=== PATIENT | male | born 1955 | race Two or more races ===

== ENCOUNTER → 2024-01-06 | Outpatient (CLI) | payer OTHER ==
[2024-01-06 11:17] LABS: Basophils # (auto) 0 10 ^3/uL (0-0.2); Basophils % (auto) 0.8 % (0.0-2.0); Eosinophils # (auto) 0.1 10 ^3/uL (0-0.8); Eosinophils % (auto) 2.9 % (0.0-7.0); Hematocrit 45.6 % (41.0-53.0); Lymphocytes # (auto) 1.2 10 ^3/uL (0.4-5.4); Mean Corpuscular Hgb Conc. 32.9 g/dL (32.0-36.0); Mean Corpuscular Volume 91.3 fL (80.0-100.0); Monocytes # (auto) 0.5 10 ^3/uL (0-1.3); Monocytes % (auto) 9.6 % (0.0-12.0); Neutrophils # (auto) 2.9 10 ^3/uL (1.6-8.6); Neutrophils % (auto) 60.7 % (37.0-80.0); Red Blood Cells 4.99 10^6/uL (4.5-5.90); Red Cell Distribution Width 14.1 % (11.8-14.3); White Blood Cell 4.7 10^3/uL (4.4-10.8)
[2024-01-06 11:40] LABS: Urine Blood Negative /uL (Negative); Urine Clarity Clear (Clear); Urine Color Yellow (Yellow); Urine Protein, UAD Negative (Negative); Urine Specific Gravity 1.021 (1.001-1.035); Urine Urobilinogen Normal (Negative)
[2024-01-06 11:58] LABS: Alanine Aminotransferase 18 U/L (7-40); Alkaline Phosphatase 117 U/L (46-116); Anion Gap 3 (5-15); Calcium 9.6 mg/dL (8.5-10.1); Carbon Dioxide 32 mmol/L (20-30); Chloride 106 mmol/L (98-107); Glucose 134 mg/dL (74-106); LDL Cholesterol 148 mg/dL (< 100); Potassium 4.3 mmol/L (3.5-5.1); Sodium 141 mmol/L (136-145); Triglycerides 131 mg/dL (< 150)
[2024-01-06 11:59] LABS: % Iron Saturation 34.9 % (20-55); Albumin 4.4 g/dL (3.2-4.8); Aspartate Aminotransferase 16 U/L (13-40); BUN/Creatinine Ratio 11.8 (10.0-20.0); Bilirubin, Total 0.8 mg/dL (0.2-1.0); Blood Urea Nitrogen 13 mg/dL (9-23); Cholesterol 201 mg/dL (< 200); HDL Cholesterol 40 mg/dL (40-59); Prostate Specific Antigen 0.59 ng/mL (0.0-4.0); Total Protein 7.3 g/dL (5.7-8.2)
[2024-01-06 12:02] LABS: Free T3 3.7 pg/mL (2.3-4.2)
[2024-01-06 12:03] LABS: T3 Total 1.17 ng/mL (0.60-1.81)
[2024-01-06 12:04] LABS: Free T4 (Free Thyroxine) 1.01 ng/dL (0.89-1.76)
[2024-01-06 12:24] LABS: Amphetamine Screen, Urine Neg (NEGATIVE)
[2024-01-06 12:25] LABS: Barbiturate Scree,Urine Neg (NEGATIVE); Benzodiazephine Screen, Urine Neg (NEGATIVE); Cannabinoid Screen, Urine Neg (NEGATIVE); Cocaine Screen, Urine Neg (NEGATIVE); Opiate Scree,Urine Pos (NEGATIVE); Phencyclidine Screen, Urine Neg (NEGATIVE)
== END | disposition home or self-care (01) ==
LOC: LAB 10:36
PROVIDERS: ATTEND Family Medicine
DX: J30.1 Allergic rhinitis due to pollen (principal); Z00.00 Encounter for general adult medical examination without abnormal findings
CPT/HCPCS: 36415; 80053; 80061; 80307; 81003; 83036; 83540; 83550; 84153; 84439; 84443; 84480; 84481; 85025

== ENCOUNTER → 2024-03-27 | Outpatient (CLI) | payer OTHER ==
[2024-03-27 11:22] LABS: Amphetamine Screen, Urine Neg (NEGATIVE); Barbiturate Scree,Urine Neg (NEGATIVE)
[2024-03-27 11:23] LABS: Benzodiazephine Screen, Urine Neg (NEGATIVE); Cocaine Screen, Urine Neg (NEGATIVE); Opiate Scree,Urine Pos (NEGATIVE)
[2024-03-27 11:24] LABS: Cannabinoid Screen, Urine Pos (NEGATIVE); Phencyclidine Screen, Urine Neg (NEGATIVE)
[2024-03-27 11:32] LABS: Alanine Aminotransferase 13 U/L (7-40); Albumin 4.4 g/dL (3.2-4.8); Alkaline Phosphatase 108 U/L (46-116); Anion Gap 4 (5-15); Aspartate Aminotransferase 10 U/L (13-40); BUN/Creatinine Ratio 12.8 (10.0-20.0); Blood Urea Nitrogen 12 mg/dL (9-23); Calcium 9.6 mg/dL (8.7-10.4); Carbon Dioxide 31 mmol/L (20-30); Chloride 105 mmol/L (98-107); Glucose 118 mg/dL (74-106); Potassium 4.3 mmol/L (3.5-5.1); Sodium 140 mmol/L (136-145)
[2024-03-27 11:33] LABS: Bilirubin, Total 0.6 mg/dL (0.2-1.0)
== END | disposition home or self-care (01) ==
LOC: LAB 10:12
PROVIDERS: ATTEND Family Medicine
DX: Z01.812 Encounter for preprocedural laboratory examination (principal)
CPT/HCPCS: 36415; 80053; 80307

== ENCOUNTER → 2024-04-10 | Outpatient (CLI) | payer OTHER | END | disposition home or self-care (01) | LOC: XYW 12:58 | PROVIDERS: ATTEND Student in an Organized Health Care Education/Training Program | DX: Z01.810 Encounter for preprocedural cardiovascular examination (principal); I51.89 Other ill-defined heart diseases | CPT/HCPCS: 93306 ==

== ENCOUNTER → 2024-04-26 | Outpatient (CLI) | payer OTHER | END | disposition home or self-care (01) | LOC: XYW 10:54 | PROVIDERS: ATTEND Student in an Organized Health Care Education/Training Program | DX: Z01.810 Encounter for preprocedural cardiovascular examination (principal); R00.0 Tachycardia, unspecified | CPT/HCPCS: 78452; 93017; A9500 ==

== ENCOUNTER → 2024-05-01 | Outpatient (CLI) | payer OTHER ==
[2024-05-01 13:06] LABS: Amphetamine Screen, Urine Neg (NEGATIVE); Barbiturate Scree,Urine Neg (NEGATIVE)
[2024-05-01 13:07] LABS: Benzodiazephine Screen, Urine Neg (NEGATIVE); Cannabinoid Screen, Urine Neg (NEGATIVE); Cocaine Screen, Urine Neg (NEGATIVE); Opiate Scree,Urine Pos (NEGATIVE); Phencyclidine Screen, Urine Neg (NEGATIVE)
== END | disposition home or self-care (01) ==
LOC: LAB 09:54
PROVIDERS: ATTEND Family Medicine
DX: R82.5 Elevated urine levels of drugs, medicaments and biological substances (principal)
CPT/HCPCS: 80307

== ENCOUNTER 2024-05-17 06:27 | Inpatient (IN) | payer OTHER ==
[2024-05-15 08:18] LABS: Basophils # (auto) 0 10 ^3/uL (0-0.2); Basophils % (auto) 0.8 % (0.0-2.0); Eosinophils # (auto) 0.2 10 ^3/uL (0-0.8); Hematocrit 44.9 % (41.0-53.0); Hemoglobin 15.5 g/dL (13.5-17.5); Lymphocytes # (auto) 1.7 10 ^3/uL (0.4-5.4); Lymphocytes % (auto) 29.6 % (10.0-50.0); Mean Corpuscular Hemoglobin 31.5 pg (28.0-32.0); Mean Corpuscular Hgb Conc. 34.5 g/dL (32.0-36.0); Mean Corpuscular Volume 91.3 fL (80.0-100.0); Monocytes # (auto) 0.5 10 ^3/uL (0-1.3); Monocytes % (auto) 8.8 % (0.0-12.0); Neutrophils # (auto) 3.3 10 ^3/uL (1.6-8.6); Neutrophils % (auto) 57.8 % (37.0-80.0); Platelet Count (auto) 238 10^3/uL (140-450); Red Blood Cells 4.92 10^6/uL (4.5-5.90); Red Cell Distribution Width 13.9 % (11.8-14.3); White Blood Cell 5.7 10^3/uL (4.4-10.8)
[2024-05-15 08:24] LABS: Urine Bacteria None Seen /hpf (None Seen)
[2024-05-15 08:39] LABS: Urine Blood Negative /uL (Negative); Urine Clarity Clear (Clear); Urine Color Yellow (Yellow); Urine Mucus FEW (None Seen); Urine Protein, UAD Negative (Negative); Urine Specific Gravity 1.029 (1.001-1.035); Urine Urobilinogen Normal (Negative); Urine WBC <1 /hpf (0 - 3); Urine pH 5.5 (5.0-9.0)
[2024-05-15 08:50] LABS: INR 1.08 (0.9-1.15); Partial Thromboplastin Time 28.8 SEC (24.5-34.5); Prothrombin Time 11.4 sec (9.3-11.8)
[2024-05-15 09:20] LABS: Alanine Aminotransferase 13 U/L (7-40); Albumin 4.5 g/dL (3.2-4.8); Alkaline Phosphatase 92 U/L (46-116); Anion Gap 8 (5-15); Aspartate Aminotransferase 10 U/L (13-40); BUN/Creatinine Ratio 17.2 (10.0-20.0); Bilirubin, Total 0.6 mg/dL (0.2-1.0); Blood Urea Nitrogen 17 mg/dL (9-23); Calcium 9.4 mg/dL (8.7-10.4); Carbon Dioxide 24 mmol/L (20-31); Chloride 109 mmol/L (98-107); Glucose 168 mg/dL (74-106); Potassium 4.2 mmol/L (3.5-5.1); Sodium 141 mmol/L (136-145)
[~2024-05-17] VITALS: Ht 195.6 cm; Wt 96.3 kg
[~2024-05-17 06:27] MED LIST: HYDR-4798 PO
[2024-05-17] MEDS: TRANEXAMIC ACID 20 ML ONE (06:36)
[2024-05-17] MEDS: LIDOCAINE 2% JELLY 11ml (GLYDO) ONE (06:37)
[2024-05-17] MEDS: ceFAZolin 2 GM/D5W100ml 100 ML IV ONE (06:43)
[2024-05-17] MEDS: levoFLOXacin 750MG 150 ML IV ONE (06:45)
[2024-05-17] MEDS ORDERED: ROCURONIUM 10MG/ML 10ML VIAL IV ONE (07:28)
[2024-05-17] MEDS ORDERED: MIDAZOLAM HCL 2MG/2ML 2ml VIAL (1mg/ml) ONE (07:28)
[2024-05-17] MEDS ORDERED: GLYCOPYRROLATE 0.2 MG/ML 1ML VIAL ONE (07:28)
[2024-05-17] MEDS ORDERED: ONDANSETRON HCL 4 MG/2 ML VIAL ONE (07:28)
[2024-05-17] MEDS ORDERED: HYDROCORTISONE SOD SUCC 100 MG/2ML INJ VIAL ONE (07:28)
[2024-05-17] MEDS ORDERED: KETOROLAC TROMETH 30 MG/ML 1ML VIAL ONE (07:28)
[2024-05-17] MEDS ORDERED: KETAMINE 50mg/ML 1ml syringe ONE (07:28)
[2024-05-17] MEDS ORDERED: fentaNYL CITRATE 100 MCG/2 ML VL ONE (07:28)
[2024-05-17] MEDS ORDERED: fentaNYL CITRATE 5 ML ONE (07:29)
[2024-05-17] MEDS: PROPOFOL 200 ML IV ONE (07:30)
[2024-05-17] MEDS: LIDOCAINE W/ EPINEPHRINE 1% 20ML VIAL ONE (08:31)
[2024-05-17] MEDS ORDERED: MEPERIDINE HCL (50 MG/ML) 1 ML VIAL ONE (09:02)
[2024-05-17] MEDS ORDERED: SUGAMMADEX 200mg/2ml Vial (100MG/ML) IV ONE (09:10)
[2024-05-17] MEDS: D5W/SOD CHLO 0.9% 1,000 ML IV SCH ×2 (09:45→15:15)
[2024-05-17] MEDS ORDERED: NITROGLYCERIN 0.4 MG SL TAB SL PRN (09:45)
[2024-05-17] MEDS ORDERED: ACETAMINOPHEN 325 MG TAB PO PRN ×2 (09:45→15:15)
[2024-05-17] MEDS ORDERED: HYDROcodone-ACET 10/325MG TAB PO PRN (09:45)
[2024-05-17] MEDS ORDERED: MORPHINE SULFATE INJ 2 MG/ml SYRG IV PRN ×3 (09:45→15:15)
[2024-05-17] MEDS ORDERED: ONDANSETRON HCL 4 MG/2 ML VIAL IV PRN ×2 (09:45→15:15)
[2024-05-17 10:32] VITALS: PULSE 77; RESP 14; O2SAT 99
[2024-05-17] MEDS: ACCU-CHEK COMFORT CURVE STRIP VI ONE (10:45)
[2024-05-17] MEDS ORDERED: HYDROmorphone HCL 2 MG/ML VL/or syr IV PRN ×2 (10:45)
[2024-05-17] MEDS: ONDANSETRON HCL 4 MG/2 ML VIAL IV ONE (10:45)
[2024-05-17 12:01] VITALS: BP 145/88; PULSE 64; RESP 19; TEMP 97.6; O2SAT 97
[2024-05-17] MEDS: DOCUSATE SOD 100 MG CAP PO SCH ×2 (12:45→21:24)
[2024-05-17 13:00] VITALS: BP 118/85; PULSE 68; RESP 20; TEMP 97.8; O2SAT 93
[2024-05-17] MEDS: CARISOPRODOL 350 MG TAB PO SCH (14:00)
[2024-05-17] MEDS: OXYCODONE W/ ACETAMINOPHEN 5/325MG TABLET PO PRN (14:15)
[2024-05-17] MEDS: ceFAZolin 1GM/50ML 50 ML IV SCH ×2 (14:15→21:27)
[2024-05-17 17:06] VITALS: BP 145/88; PULSE 64; RESP 19; TEMP 97.6; O2SAT 97
[2024-05-17] MEDS: HYDROmorphone HCL 2 MG/ML VL/or syr IV PRN (17:21)
[2024-05-17 20:00] VITALS: PULSE 51; PULSE 91; RESP 18; O2SAT 92
[2024-05-17 21:00] VITALS: BP 133/71; PULSE 51; RESP 18; TEMP 98.3; O2SAT 92
[2024-05-17] MEDS ORDERED: CYCLOBENZAPRINE HCL 10 MG TAB PO SCH (22:00)
[2024-05-18] VITALS (7 sets, daily range): BP systolic 131–142; BP diastolic 70–85; PULSE 77–107; RESP 17–19; TEMP 97.8–100.2; O2SAT 93–97
[2024-05-18] MEDS: LACTULOSE 20Gm/30ML SOLN PO ONE (14:26)
[2024-05-18] MEDS: diazePAM 5 MG TAB PO PRN (21:31)
[2024-05-18] MEDS: LACTULOSE 20Gm/30ML SOLN PO SCH (22:20)
[2024-05-19] VITALS (7 sets, daily range): BP systolic 124–145; BP diastolic 60–84; PULSE 65–98; RESP 17–18; TEMP 98.3–99.6; O2SAT 95–98
[2024-05-20] VITALS (7 sets, daily range): BP systolic 123–146; BP diastolic 67–83; PULSE 73–95; RESP 18–19; TEMP 97.9–98.7; O2SAT 94–98
== END 2024-05-20 22:29 | disposition left against medical advice (07) | DRG 451 ==
LOC: SUR 06:27 → TELE 09:42 → TELE-CENTR 11:42
PROVIDERS: ADMIT Internal Medicine; ATTEND Internal Medicine
PROC: 01NB0ZZ Release Lumbar Nerve, Open Approach (ICD-10-PCS; 2024-05-17)
PROC: 01NR0ZZ Release Sacral Nerve, Open Approach (ICD-10-PCS; 2024-05-17)
PROC: 00NY0ZZ Release Lumbar Spinal Cord, Open Approach (ICD-10-PCS; 2024-05-17)
PROC: 4A11X4G Monitoring of Peripheral Nervous Electrical Activity, Intraoperative, External Approach (ICD-10-PCS; 2024-05-17)
PROC: 0SG3071 Fusion of Lumbosacral Joint with Autologous Tissue Substitute, Posterior Approach, Posterior Column, Open Approach (ICD-10-PCS; principal; 2024-05-17 07:32)
DX: M48.07 Spinal stenosis, lumbosacral region (principal); M96.1 Postlaminectomy syndrome, not elsewhere classified; G89.29 Other chronic pain; M54.16 Radiculopathy, lumbar region; K59.00 Constipation, unspecified; F41.9 Anxiety disorder, unspecified; Z53.29 Procedure and treatment not carried out because of patient's decision for other reasons; Z88.5 Allergy status to narcotic agent; Z86.73 Personal history of transient ischemic attack (TIA), and cerebral infarction without residual deficits
CPT/HCPCS: 36415; 72100; 76000; 80053; 81001; 82962; 85025; 85610; 85730; 86850; 86900; 86901; 97110; 97116; 97163; 97530; G0378; J1885; J1956; J2250; J2405; J2704; J7042

== ENCOUNTER → 2024-07-02 | Outpatient (CLI) | payer OTHER | END | disposition home or self-care (01) | LOC: LAB 09:25 | PROVIDERS: ATTEND Family Medicine | DX: S09.90XD Unspecified injury of head, subsequent encounter (principal); J34.89 Other specified disorders of nose and nasal sinuses; X58.XXXD Exposure to other specified factors, subsequent encounter | CPT/HCPCS: 36415; 82565; 84520 ==

== ENCOUNTER 2025-01-21 06:07 | Outpatient (CLI) | payer OTHER ==
[2025-01-21 06:51] LABS: Urine Bacteria None Seen /hpf (None Seen)
[2025-01-21 07:39] LABS: Urine Blood Negative /uL (Negative); Urine Clarity Clear (Clear); Urine Color Light-Yellow (Yellow); Urine Protein, UAD Negative (Negative); Urine Specific Gravity 1.017 (1.001-1.035); Urine Squamous Epithelial Cell None Seen /hpf (<5); Urine Urobilinogen Normal (Negative); Urine WBC < 1 /HPF (0-3)
[2025-01-21 08:01] LABS: Alanine Aminotransferase 13 U/L (7-40); Alkaline Phosphatase 113 U/L (46-116); Anion Gap 8 (5-15); Blood Urea Nitrogen 16 mg/dL (9-23); Calcium 9.5 mg/dL (8.7-10.4); Carbon Dioxide 29 mmol/L (20-31); Chloride 106 mmol/L (98-107); Magnesium 2.1 mg/dL (1.6-2.6); Potassium 4.3 mmol/L (3.5-5.1); Sodium 143 mmol/L (136-145); Triglycerides 96 mg/dL (< 150)
[2025-01-21 08:02] LABS: Albumin 4.2 g/dL (3.2-4.8); Total Protein 6.7 g/dL (5.7-8.2)
[2025-01-21 08:03] LABS: Bilirubin, Total 0.5 mg/dL (0.2-1.0); Cholesterol 183 mg/dL (< 200); HDL Cholesterol 47 mg/dL (40-59)
[2025-01-21 08:04] LABS: Aspartate Aminotransferase < 8 U/L (13-40); Glucose 135 mg/dL (74-106); LDL Cholesterol 136 mg/dL (< 100)
[2025-01-21 08:41] LABS: Uric Acid 6.6 mg/dL (3.7-9.2)
[2025-01-21 10:58] LABS: % Iron Saturation 23.2 % (20-55)
[2025-01-21 11:00] LABS: Prostate Specific Antigen 0.69 ng/mL (0.0-4.0)
== END 2025-01-21 17:00 | disposition home or self-care (01) ==
LOC: LAB 06:07
PROVIDERS: ATTEND Family Medicine
DX: J44.9 Chronic obstructive pulmonary disease, unspecified (principal); G89.29 Other chronic pain; Z00.00 Encounter for general adult medical examination without abnormal findings
CPT/HCPCS: 36415; 80053; 80061; 81001; 82306; 82607; 83036; 83540; 83550; 83735; 84153; 84403; 84443; 84550; 87086

== ENCOUNTER → 2025-06-05 | Outpatient (CLI) | payer OTHER ==
[2025-06-05 08:03] LABS: Hematocrit 47.6 % (41.0-53.0); Hemoglobin 15.8 g/dL (13.5-17.5); Mean Corpuscular Hemoglobin 30.5 pg (28.0-32.0); Mean Corpuscular Volume 91.7 fL (80.0-100.0); Nucleated Red Blood Cells % 2.8 %
[2025-06-05 08:05] LABS: Urine Protein, UAD Negative (Negative)
[2025-06-05 12:18] LABS: Alanine Aminotransferase 15 U/L (7-40); Alkaline Phosphatase 94 U/L (46-116); Anion Gap 10 (5-15); Calcium 9.0 mg/dL (8.7-10.4); Carbon Dioxide 26 mmol/L (20-31); Potassium 4.5 mmol/L (3.5-5.1); Sodium 143 mmol/L (136-145)
[2025-06-05 12:19] LABS: Blood Urea Nitrogen 14 mg/dL (9-23); Total Protein 6.9 g/dL (5.7-8.2); Triglycerides 94 mg/dL (< 150)
[2025-06-05 12:20] LABS: Albumin 4.2 g/dL (3.2-4.8)
[2025-06-05 12:21] LABS: Bilirubin, Total 0.5 mg/dL (0.2-1.0); HDL Cholesterol 41 mg/dL (40-59)
[2025-06-05 12:24] LABS: BUN/Creatinine Ratio 13.5 (10.0-20.0)
[2025-06-05 12:31] LABS: Free T4 (Free Thyroxine) 0.97 ng/dL (0.89-1.76)
[2025-06-05 12:37] LABS: Chloride 107 mmol/L (98-107); Cholesterol 201 mg/dL (< 200); Glucose 142 mg/dL (74-106); Prostate Specific Antigen 0.65 ng/mL (0.0-4.0)
[2025-06-05 15:05] LABS: Hepatitis B Surface Antigen Negative (Negative)
[2025-06-05 15:06] LABS: Hepatitis A Total Antibody Positive (Negative)
[2025-06-05 15:14] LABS: Hepatitis C Antibody Positive (Negative)
== END | disposition home or self-care (01) ==
LOC: LAB 07:32
PROVIDERS: ATTEND Family Medicine
DX: E55.9 Vitamin D deficiency, unspecified (principal); J44.9 Chronic obstructive pulmonary disease, unspecified; N52.9 Male erectile dysfunction, unspecified; F31.60 Bipolar disorder, current episode mixed, unspecified
CPT/HCPCS: 36415; 80053; 80061; 81001; 82306; 82746; 83036; 84153; 84439; 84443; 85025; 86704; 86706; 86708; 86803; 87340